=== PATIENT | male | born 1990 | race African-American/Black ===

== ENCOUNTER 2017-12-27 17:40 | Emergency (ER) | payer MEDICAID ==
[2017-12-27 17:52] VITALS: BP 116/69
[2017-12-27] MEDS ORDERED: AZITHROMYCIN 250 MG TAB PO ONE (18:06)
--- NOTE | 2017-12-27 18:11 | EDPHY ---
H & P Time Seen by Provider: 12/27/17 17:54 HPI/ROS: HPI Burning with urination. 27-year-old male by private vehicle with his brother. He and his brother both recently moved to this area from [place]. He reports that they were both on an online dating site. They met a group of girls on this site. They went down to [place] to a democr[place] with them 3-4 days ago. They were drinking alcohol. This then turned into a sex democrat. The patient presents the emergency department with complaint of burning with urination and scant penile discharge. ROS: Constitutional: No fever, no chills. No weakness. Eyes: No discharge. No changes in vision. ENT: No sore throat. No nasal congestion or rhinorrhea. Gastrointestinal: No abdominal pain, no vomiting, no diarrhea. Genitourinary: No hematuria. As above. Musculoskeletal: No back pain. No myalgias or arthralgias. Skin: No rashes. Neurological: No headache. Past medical history: Social history: Physical Exam: General Appearance: Alert, no distress. This patient is responding to questions appropriately and in full sentences. This patient appears well- hydrated and well-nourished. Eyes: Pupils equal and round no pallor or injection. No lid edema, erythema or injection. Genitourinary: Uncircumcised penis, no lesions, no significant discharge. Testicles/scrotum, normal lie and otherwise unremarkable on exam. Neurological: Motor sensory function is grossly intact. Cranial nerves are normal. Gait is normal. Skin: Warm and dry, no rashes. Extremities are symmetrical. All joints range without pain or impingement. Psychiatric: No agitation. No depression. Database: EKG: Imaging: Procedures: Emergency department course: Triage vital signs reviewed and are normal. The patient is afebrile. Patient given 250 mg of intramuscular ceftriaxone and 1000 mg of oral azithromycin for treatment of STI. Dirty urine sent for GC and chlamydia testing. Urinalysis also obtained and significant for red cells and white cells. Patient instructed that we would have the results back on his STI tests in the next day or 2. He feels comfortable going home with his brother who was also seen in the emergency department at the same time. Follow-up and return to emergency department precautions reviewed with him. All of his questions were answered. He was discharged from the emergency department in good condition. Differential Diagnosis: The differential diagnosis on this patient includes but is not limited to STI. Urinary tract infection, balanoposthitis unlikely. This represents a partial list of diagnoses considered. These considerations are based on history, physical exam, past history, reassessment and diagnostic testing. Smoking Status: Heavy smoker Constitutional: Initial Vital Signs Temperature (C) 36.7 C 12/27/17 17:48 Heart Rate 96 12/27/17 17:48 Respiratory Rate 18 12/27/17 17:48 Blood Pressure 116/69 12/27/17 17:48 O2 Sat (%) 100 12/27/17 17:48 O2 Delivery Mode Room Air Allergies/Adverse Reactions: No Known Allergies Allergy (Unverified 12/27/17 17:47) Medical Decision Making - Data Points Laboratory Results: 12/27/17 12/27/17 17:50 17:50 Urine Color YELLOW Urine Appearance MODERATELY TURBID Urine pH 5.0 (5.0-7.5) Ur Specific Porter 1.023 (1.002-1.030) Urine Protein NEGATIVE (NEGATIVE) Urine Ketones NEGATIVE (NEGATIVE) Urine Blood 2+ H (NEGATIVE) Urine Nitrate NEGATIVE (NEGATIVE) Urine Bilirubin NEGATIVE (NEGATIVE) Urine Urobilinogen 2.0 EU H EU (0.2-1.0) Ur Leukocyte Esterase 3+ H (NEGATIVE) Urine RBC 50-182 /hpf H /hpf (0-3) Urine WBC 50-182 /hpf H /hpf (0-3) Ur Epithelial Cells NONE SEEN /lpf /lpf (NONE-1+) Urine Bacteria 1+ /hpf H /hpf (NONE SEEN) Urine Mucus TRACE /lpf /lpf (NONE-1+) Urine Glucose NEGATIVE (NEGATIVE) C.trachomatis RNA (TMA) Pending N.gonorrhoeae RNA (TMA) Pending Medications Given: Discontinued Medications Azithromycin (Zithromax) 1,000 mg PO EDNOW ONE PRN Reason: Protocol Stop: 12/27/17 18:07 Last Admin: 12/27/17 18:47 Dose: 1,000 mg Ceftriaxone Sodium (Rocephin Im Syringe) 250 mg IM ONCE ONE PRN Reason: Protocol Stop: 12/27/17 18:07 Last Admin: 12/27/17 18:48 Dose: 250 mg Departure - Departure Disposition: Home, Routine, Self-Care Clinical Impression: STI (sexually transmitted infection) Condition: Good Instructions: Chlamydia (ED), Safe Sex (ED) Additional Instructions: Read and follow provided instructions. Follow-up with your primary care physician in 1-2 days for re-evaluation. The results of your testing in the emergency department should be available in 1 -2 days. Call back for test results. Return to the emergency department for worsening symptoms or other serious concerns. Referrals: NONE *PRIMARY CARE P,. [Primary Care Provider] - As per Instructions
[2017-12-28 11:48] LABS: GC AMPLIFICATION GENPROBE POSITIVE (NEGATIVE)
== END 2017-12-27 18:49 | disposition home or self-care (01) ==
DX: A64 Unspecified sexually transmitted disease (principal)
CPT/HCPCS: J0696